=== PATIENT | female | born 1995 | race Caucasian/White ===

== ENCOUNTER 2016-04-25 08:44 | Emergency (ER) | payer OTHER ==
[~2016-04-25] VITALS: Ht 167.6 cm; Wt 70.5 kg
[2016-04-25 08:56] VITALS: BP 106/73; PULSE 82; RESP 16; O2SAT 99
--- NOTE | 2016-04-25 09:07 | ED.REPORT ---
HPI-General Illness Date of Service Apr 25, 2016 ED Provider: Yvon Castillo MD Patient is a 20 year old female with a history of type 1 diabetes mellitus with a history of DKA who presents to the ED with persistent hyperglycemia since 0200 this morning. The patient awoke from sleep needing to urinate and found that she had abdominal pain and increased thirst. She measured her blood sugar at 594 and took her correcting dose of insulin (30 units). She reduced her sugar down to 300 since 6am, but is unable to get it any lower. Recently the patient had woken up with hypoglycemia at night several times recently, with blood sugars in the 30s. The patient recently moved to the area without her , so she has not had anyone to check on her at night. Since that time she has cut her Lantus from 34 units at dinner to 27 units, to prevent hypoglycemia. She takes her Lantus with dinner at night. Patient takes a dose of 3 units of Lantus every 50 over 150, as a correcting dose at night and at dinner. At breakfast she takes 4 units and at lunch 2 units for every 50 over 150. This is always before she eats. She also takes 1 unit per 5 grams of carbs of Humalog for her carb ratio. The patient states that she currently has a cold and she is on her period, which is why she believes are sugars are not well controlled. She believes that she is seen by Dr. Jerry at [facility]. The patient recently moved to the area to be closer to her family. She denies increased urination or vomiting, but admits to nausea. Nursing Notes Stated Complaint: DIABETES ISSUES Chief Complaint: General Complaint Nursing Notes Reviewed: Yes Allergies: Coded Allergies: latex (Verified Allergy, Mild, RED SPOT/ITCHY, 04/25/16) General Time Seen by : 09:07 Chief Complaint Other (hyperglycemia) Hx Obtained From: Patient Arrived By: Walk-in Sudden in Onset?: No Onset Occurred: 9 - 12 hours ago Symptom Duration: Since onset Location: : Abdomen Quality: Painful Severity: Current: Mild Severity: Maximum: Mild Recent Healthcare: No recent doctor visit, No recent hospitalization Similar Sx Previous: Yes Past Medical History Past Medical History diabetes mellitus, Type 1 prior hospital admission for DKA Past Surgical History none reported Smoking History Unknown if Ever Smoker Social History Other Social History: Good social support, , Local resident Ambulatory Status Independent Review of Systems + hyperglycemia, increased thirst Full Review of Systems GI: Reports: Abdominal pain, Nausea, Denies: Vomiting Female: Denies: Urinary urgency, Urination increased Complete sys rev & neg: except as marked. Physical Exam Vital Signs Vital Signs Date Time Temp Pulse Resp B/P Pulse Ox O2 Delivery O2 Flow Rate FiO2 04/25/16 12:05 36.4 82 16 106/73 99 04/25/16 08:56 36.4 82 16 106/73 99 Initial VS: Reviewed Head / Eyes: Atraumatic, Normocephalic, PERRL Neck: Supple, Full range of motion Abdomen / GI: Soft, Non-tender, No distention Extremities: Vascular intact, Neuro intact Neurologic: Alert, Oriented, Nonfocal Psychiatric: Mood/affect normal, Behavior normal, Normal thought content General/Constitutional: Awake, Alert, No acute distress ENT: Airway patent Mouth: Positive: Mucous membranes dry (slight) Respiratory / Chest: Breath sounds NL, Breath sounds = bilat, No respiratory distress, No rales, No rhonchi, No wheezing Cardiovascular: Heart rate NL, Regular rhythm, Heart sounds NL, No gallop, No murmurs Lower Extremity / Pelvis / MS: No swelling (no calf swelling), Non-tender (no calf tenderness) Skin: No rash Interpretation & Diagnostics Lab Results Interpretation Result Diagram: 04/25/16 0950 04/25/16 0950 Test 04/25/16 09:05 04/25/16 09:50 Urine Color Straw (YELLOW) Urine Appearance Hazy (CLEAR,HAZY) Urine pH 6.0 (5.0-8.0) Urine Specific [place] 1.015 (1.003-1.035) Urine Protein Negativemg/dL (NEG,TRACE) Urine Glucose (UA) 1000mg/dL (NEGATIVE) Urine Ketones 15mg/dL (NEGATIVE) Urine Occult Blood Negative (NEGATIVE) Urine Nitrite Negative (NEGATIVE) Urine Bilirubin Negative (NEGATIVE) Urine Urobilinogen Normalmg/dL (NORMAL) Urine Leukocyte Esterase Negative (NEGATIVE) Urine RBC 0-2/hpf (0-2) Urine WBC 0-5/hpf (0-5) Urine Epithelial Cells Occasional/hpf (NONE-MOD) Urine Crystals None seen (NONE SEEN) Urine Bacteria None/hpf (NONE-FEW) Urine Hyaline Casts None/lpf (NONE) Urine Granular Casts None seen (NONE SEEN) Urine Waxy Casts None seen (NONE SEEN) Urine Red Blood Cell Casts None seen (NONE SEEN) Urine White Blood Cell Casts None seen (NONE SEEN) Urine Mucus None seen (None Seen) Urine Trichomonas None seen (NONE SEEN) Urine Yeast None (NONE SEEN) Urinalysis Comment None Urine Culture Reflexed Not indicated White Blood Count 13.2th/mm3 (3.8-10.1) Red Blood Count 4.10mil/mm3 (3.90-5.20) Hemoglobin 13.1g/dL (12.0-15.6) Hematocrit 40.0% (35.0-46.0) Mean Corpuscular Volume 97.6fL (81-100) Mean Corpuscular Hemoglobin 32.0pg (27.0-35.0) Mean Corpuscular Hemoglobin Concent 32.8% (32.0-37.0) Red Cell Distribution Width 13.6% (12.3-15.4) Platelet Count 352bil/L (150-400) Neutrophils (%) (Auto) 71.8% (40-74) Lymphocytes (%) (Auto) 20.6% (14-46) Monocytes (%) (Auto) 5.5% (4-12) Eosinophils (%) (Auto) 1.4% (0-5) Basophils (%) (Auto) 0.3% (0-3) Sodium Level 138mEq/L (134-144) Potassium Level 4.7mEq/L (3.5-5.2) Chloride Level 99mEq/L (97-108) Carbon Dioxide Level 24mmol/L (18-29) Blood Urea Nitrogen 16mg/dL (6-20) Creatinine 0.66mg/dL (0.57-1.00) Estimat Glomerular Filtration Rate 162mL/min (>59) Glucose Level 408mg/dL (60-99) Lactic Acid Level 1.4mmol/L (0.4-2.0) Calcium Level 9.0mg/dL (8.5-10.1) Magnesium Level 1.9mg/dL (1.6-2.6) Total Bilirubin 0.4mg/dL (0.0-1.2) Aspartate Amino Transf (AST/SGOT) 15U/L (0-50) Alanine Aminotransferase (ALT/SGPT) 17U/L (0-32) Alkaline Phosphatase 60U/L (25-150) Total Protein 7.3g/dL (6.4-8.4) Albumin 3.6g/dL (3.4-5.0) Re-Eval/Medical Decision Med Decision/Clinical Course In summary, the patient is a 20-year-old female with a history of type I diabetes who presents emergency department for evaluation complaining of persistently elevated blood sugar after waking up this morning feeling thirsty like she had to urinate. She reports that she recently moved to the area and decreased her basal Lantus from 34 units to 27 units at night due to concern that she might become hypoglycemic in the middle of the night. She states that since doing this she has had some trouble managing her blood sugars. She presents to the emergency department today with hopes that we can assist her in managing her blood sugar. She is currently followed by Dr. Jerry at [facility]. Upon arrival the patient appears slightly dehydrated though is in no apparent distress with stable vital signs and blood sugar of 340. IV access was obtained and read by the yesenia Christian for nausea and 2 L of IV fluids. She is nontoxic appearing and does not clinically appear to be a diabetic ketoacidosis. With a blood sugar of 340 I think it unlikely that she is in DKA though is probably experiencing some degree of hyper osmolar diuresis. Laboratory studies were obtained and were notable for leukocytosis but otherwise unremarkable CBC. The patient had good kidney function, normal LFTs and no significant electrolyte abnormalities. Her anion gap was only minimally elevated at 15. Her lactic acid was within normal limits and at this time I see no evidence of significant bacterial illness or diabetic ketoacidosis. The patient was discussed with her primary care physician at [facility] and we have arranged for a clinic appointment today at 2 PM. After receiving IV fluids the patient's blood sugar was rechecked and had improved to . She was discharged directly to [facility] follow-up with primary care doctor to make further modifications upon her insulin regimen. At this time she has good follow-up. She is appropriate for discharge home. Follow up with Dr. Rome reviewed in detail and she was discharged in stable condition. Source of Hx: Old records Time of Eval: 11:01 Re-Evaluation/Progress Note: Informed the patient of the conversation with Dr. Jerry, with appointment for this afternoon. Will recheck her blood sugar after her fluids are finished. Patient understands and agrees with the plan to be discharged home. Discharge instructions and follow-up discussed. All questions were addressed. Return to the ED warnings given. Consultation : Referral / Consult Name: Vandana Jerry MD Consulted With: Primary care physician Call Returned at: 09:59 Note: Spoke with Dr. Jerry, PCP at [facility]. She will see the patient at 2pm this afternoon at [facility]. Counseled Regarding: Diagnosis, Lab results, Need for follow-up, When/why to return to ED Discharge & Departure Primary Impression: Hyperglycemia Additional Impressions: Diabetes mellitus type 1 Diabetes mellitus complication status: with hyperglycemia Qualified Code: E10.65 - Type 1 diabetes mellitus with hyperglycemia DM w/ hyperosmolarity Polyuria Disposition: Home Discharge Condition All VS Reviewed: Yes Condition: Stable Patient Instructions: Diabetes Mellitus Type 1 in Adults (ED), Managing Diabetes During Sick Days (ED) Additional Instructions: Thank you for seeking care at emergency room. Our primary goal today in the ED was to evaluate you for any life-threatening conditions. Your evaluation was reassuring. You were treated with IV fluids and nausea medications. You should follow-up with your primary doctor at [facility] today at 2pm, please arrive 15 minutes early. Discuss your insulin regimen at that time. You should return to the ED immediately if you develop confusion, weakness, fevers, vomiting, cough, shortness of breath, chest pain, lightheadedness, weakness or any other concerning signs or symptoms. Thank you for letting us partake in your care today. Referrals: Vandana Jerry MD [facility] Attestation Portions of this note were transcribed by Vera Knapp. I, Dr. Castillo personally performed the history, physical exam and medical decision-making; I reviewed and confirmed the accuracy of the information in the transcribed note. Signed by: Chiara Elias, 04/25/2016 [id number] copies to: Vandana Jerry MD; [facility] Yvon Castillo MD Apr 25, 2016 09:07 Vera Knapp Apr 25, 2016 09:47
[2016-04-25] MEDS ORDERED: 0.9% Sodium Chloride 1,000 ML IV ONE ×2 (09:43→09:45)
[2016-04-25] MEDS ORDERED: Ondansetron 2 mg/mL 2 mL Inj IVPUSH ONE (10:05)
[2016-04-25 10:16] LABS: BASOPHILS % (AUTO) 0.3 % (0-3); EOSINOPHILS % (AUTO) 1.4 % (0-5); MONOCYTES % (AUTO) 5.5 % (4-12); Mean Corpuscular Volume 97.6 fL (81-100); NEUTROPHILS % (AUTO) 71.8 % (40-74); Platelet Count 352 bil/L (150-400)
[2016-04-25 10:26] LABS: Magnesium 1.9 mg/dL (1.6-2.6)
[2016-04-25 10:43] LABS: APPEARANCE,URINE HAZY (CLEAR,HAZY); COLOR,URINE STRAW (YELLOW); OCCULT BLOOD,URINE NEGATIVE (NEGATIVE); UROBILINOGEN,URINE NORMAL (NORMAL)
[2016-04-25 12:05] VITALS: BP 106/73; PULSE 82; RESP 16; O2SAT 99
== END 2016-04-25 12:05 | disposition home or self-care (01) ==
LOC: SED 08:44
DX: E10.65 Type 1 diabetes mellitus with hyperglycemia (principal); E10.69 Type 1 diabetes mellitus with other specified complication; E87.0 Hyperosmolality and hypernatremia; R35.8 Other polyuria; Z79.4 Long term (current) use of insulin; Z91.040 Latex allergy status
CPT/HCPCS: 36415; 80053; 81000; 81025; 82948; 83605; 83735; 85025; 96361; 96374; 99285; J2405; J7030